=== PATIENT | female | born 1995 | race African-American/Black ===

== ENCOUNTER 2016-10-20 13:55 | Emergency (ER) | payer SELFPAY ==
[~2016-10-20] VITALS: Ht 170.2 cm; Wt 102.1 kg
[2016-10-20 14:10] VITALS: BP 108/55
[2016-10-20 15:13] LABS: BILIRUBIN,URINE NEGATIVE (NEG); GLUCOSE,URINE NEGATIVE (NEG); NITRITE,URINE NEGATIVE (NEG); PH,URINE 6.5; PROTEIN,URINE NEGATIVE (NEG-TRACE)
[2016-10-20 15:29] LABS: BACTERIA,URINE MODERATE /HPF (0-FEW); RBC,URINE 0 /HPF (0-2); SQUAMOUS EPITHELIAL CELL,UR MANY /LPF; WBC,URINE 20-40 /HPF (0-4)
[2016-10-20] MEDS ORDERED: NITR100C62 PO (15:41)
--- NOTE | 2016-10-20 15:42 | PHYS DOC ---
Past Medical History Past Medical History: No Pertinent History Past Surgical History: Other Additional Past Surgical Histo: ORAL SURGERY Alcohol Use: None Drug Use: None Adult General Chief Complaint Chief Complaint: PAIN ON URINATION HPI HPI 21-year-old female presenting to the emergency department with polyuria and dysuria. She describes the pain as sharp worse with urination nonradiating mild to moderate. It is associated with polyuria. She denies vaginal bleeding. She is unsure of her status. Her last menstrual period was approximately 4-1/2 weeks ago. Review of systems was negative for chest pain shortness of breath fevers chills abdominal pain or vaginal bleeding. All other review of systems is negative unless otherwise noted in history of present illness. Review of Systems Review of Systems see above Allergies Allergies Allergies Coded Allergies Type Severity Reaction Last Updated Verified No Known Drug Allergies 02/20/14 No Physical Exam Physical Exam Constitutional: Well developed, well nourished, no acute distress, non-toxic appearance. HENT: Normocephalic, atraumatic, bilateral external ears normal, oropharynx moist, no oral exudates, nose normal. [] Eyes: PERRLA, EOMI, conjunctiva normal, no discharge. [] Neck: Normal range of motion, no tenderness, supple, no stridor. Cardiovascular:Heart rate regular rhythm, no murmur [] Lungs & Thorax: Bilateral breath sounds clear to auscultation Abdomen: Bowel sounds normal, soft, no tenderness, no masses, no pulsatile masses. Skin: Warm, dry, no erythema, no rash. [] Back: No tenderness, no CVA tenderness. Extremities: No tenderness, no cyanosis, no clubbing, ROM intact, no edema. [] Neurologic: Alert and oriented X 3, normal motor function, normal sensory function, no focal deficits noted. [] Psychologic: Affect normal, judgement normal, mood normal. Current Patient Data Vital Signs Vital Signs Date Time Temp Pulse Resp B/P Pulse Ox O2 Delivery O2 Flow Rate FiO2 10/20/16 14:10 98.2 77 20 99 Room Air 98.2 Lab Values Laboratory Tests Test 10/20/16 14:15 Urine Collection Type Unknown Urine Color Yellow Urine Clarity Clear Urine pH 6.5 Urine Specific [place] 1.020 Urine Protein Negativemg/dL (NEG-TRACE) Urine Glucose (UA) Negativemg/dL (NEG) Urine Ketones (Stick) Negativemg/dL (NEG) Urine Blood Negative (NEG) Urine Nitrite Negative (NEG) Urine Bilirubin Negative (NEG) Urine Urobilinogen Dipstick 1.0mg/dL (0.2 mg/dL) Urine Leukocyte Esterase Large (NEG) Urine RBC 0/HPF (0-2) Urine WBC 20-40/HPF (0-4) Urine Squamous Epithelial Cells Many/LPF Urine Bacteria Moderate/HPF (0-FEW) Urine Mucus Mod/LPF EKG EKG [] Radiology/Procedures Radiology/Procedures [] Course & Med Decision Making Course & Med Decision Making Pertinent Labs and Imaging studies reviewed. (See chart for details) [] 21-year-old female presenting to the emergency department today with polyuria and dysuria. Signs and symptoms consistent with UTI. Urinalysis positive for urinary tract infection. test negative. I recommended repeating test in 5 days at home. Follow-up with doctor in 23 days. Antibiotics ordered. Dragon Disclaimer Dragon Disclaimer This electronic medical record was generated, in whole or in part, using a voice recognition dictation system. Departure Departure Impression: Primary Impression: UTI (urinary tract infection) Disposition: HOME, SELF-CARE Condition: STABLE Referrals: NO PCP (PCP) SUNNY LOMELI MD Patient Instructions: Urinary Tract Infection Additional Instructions: Thank you for allowing us to participate in your care today. Followup with your primary care physician in 3 days if your symptoms do not improve. Return to the emergency department you have any new or concerning findings. This should be evaluated by the primary care physician and any necessary consulting services for continued management within a few days after discharge. Return to emergency room if you have any new or concerning symptoms including but not limited to fever, chills, nausea, vomiting, intractable pain, any new rashes, chest pain, shortness of air, uncontrolled bleeding, difficulty breathing, and/or vision loss. Be careful as some of the medications that are prescribed in the emergency department can cause drowsiness and fatigue. Do not drive on medications that can cause drowsiness. Some of these medications include Benadryl or hydrocodone. Be sure to check with her pharmacist about any medications you were prescribed today regarding this. Scripts Nitrofurantoin Monohyd/M-Cryst (Macrobid 100 Mg Capsule)100 Mg Capsule1 Cap PO BID #10 CAP Prov:ESTEE ANGUIANO MD 10/20/16 ESTEE ANGUIANO MD Oct 20, 2016 15:41
== END 2016-10-20 15:47 | disposition home or self-care (01) ==
LOC: ER 13:55
DX: N39.0 Urinary tract infection, site not specified (principal)
CPT/HCPCS: 81001; 81025; 87086; 99284

== ENCOUNTER 2016-12-08 12:50 | Emergency (ER) | payer SELFPAY ==
[~2016-12-08] VITALS: Ht 167.6 cm; Wt 101.2 kg
[~2016-12-08 12:50] MED LIST: NITR100C62 PO
--- NOTE | 2016-12-08 14:41 | PHYS DOC ---
Past Medical History Past Medical History: No Pertinent History Past Surgical History: Other Additional Past Surgical Histo: ORAL SURGERY Alcohol Use: None Drug Use: None Adult General Chief Complaint Chief Complaint: ABDOMINAL PAIN IN HPI HPI Patient is a 21 year old female who presents with complaint of abdominal pain. Patient states that she is having dull lower abdominal pain which has been present since this morning. Patient is A1 approximately 7-1/2 weeks based off of last menstrual period of October 16, 2016. Patient states that she went to the health department and had a urine test which was positive for . Patient has not had an ultrasound done since confirming . The patient is not under the care of an [facility]PAIR[facility] but states that she plans on setting up care with Dr. Crum. Patient notes that she has had clearish vaginal discharge but denies any vaginal bleeding. Patient has not had any associated fevers or vomiting with her symptoms. Patient has not taken any medication to help with her symptoms. Patient rates her pain currently as 5 out of 10. Review of Systems Review of Systems Constitutional: Denies fever or chills [] Eyes: Denies change in visual acuity, redness, or eye pain [] HENT: Denies nasal congestion or sore throat [] Respiratory: Denies cough or shortness of breath [] Cardiovascular: No additional information not addressed in HPI [] GI: Abdominal pain, denies nausea, vomiting, bloody stools or diarrhea [] : Vaginal discharge, denies dysuria or hematuria [] Musculoskeletal: Denies back pain or joint pain [] Integument: Denies rash or skin lesions [] Neurologic: Denies headache, focal weakness or sensory changes [] Endocrine: Denies polyuria or polydipsia [] Current Medications Current Medications Current Medications Medications (Trade) Dose Ordered Sig/[facility] Start Time Stop Time Status Last Admin Dose Admin Metronidazole (Flagyl) 500 mg 1X ONCE 12/08/16 15:00 12/08/16 15:01 DC 12/08/16 14:58 500 MG Allergies Allergies Allergies Coded Allergies Type Severity Reaction Last Updated Verified No Known Drug Allergies 02/20/14 No Physical Exam Physical Exam Constitutional: Well developed, well nourished, no acute distress, non-toxic appearance. [] HENT: Normocephalic, atraumatic, bilateral external ears normal, oropharynx moist, no oral exudates, nose normal. [] Eyes: PERRLA, EOMI, conjunctiva normal, no discharge. [] Neck: Normal range of motion, no tenderness, supple, no stridor. [] Cardiovascular:Heart rate regular rhythm, no murmur [] Lungs & Thorax: Bilateral breath sounds clear to auscultation [] Abdomen: Bowel sounds normal, soft, no tenderness, no masses, no pulsatile masses. Pelvic: Normal external exam, no visible blood or purulent discharge in vaginal canal, no cervical motion tenderness, no midline or bilateral adnexal tenderness on bimanual exam [] Skin: Warm, dry, no erythema, no rash. [] Back: No tenderness, no CVA tenderness. [] Extremities: No tenderness, no cyanosis, no clubbing, ROM intact, no edema. [] Neurologic: Alert and oriented X 3, normal motor function, normal sensory function, no focal deficits noted. [] Current Patient Data Vital Signs Vital Signs Date Time Temp Pulse Resp B/P Pulse Ox O2 Delivery O2 Flow Rate FiO2 12/08/16 16:12 72 117/56 100 Room Air 12/08/16 12:53 16 Lab Values Laboratory Tests Test 12/08/16 13:48 12/08/16 14:40 Maternal Serum HCG Beta Subunit 59573dFG/mL (0-6) H Urine Collection Type Unknown Urine Color Yellow Urine Clarity Clear Urine pH 7.0 Urine Specific [place] 1.010 Urine Protein Negativemg/dL (NEG-TRACE) Urine Glucose (UA) Negativemg/dL (NEG) Urine Ketones (Stick) Negativemg/dL (NEG) Urine Blood Negative (NEG) Urine Nitrite Negative (NEG) Urine Bilirubin Negative (NEG) Urine Urobilinogen Dipstick 0.2mg/dL (0.2 mg/dL) Urine Leukocyte Esterase Small (NEG) Urine RBC 0/HPF (0-2) Urine WBC 1-4/HPF (0-4) Urine Squamous Epithelial Cells Few/LPF Urine Bacteria Few/HPF (0-FEW) Microbiology 12/08/16 Wet Prep - Final, Complete Microbiology 12/08/16 Wet Prep - Final, Complete EKG EKG Not performed [] Radiology/Procedures Radiology/Procedures Limited bedside transabdominal ultrasound performed and interpreted by myself: Cystic structure with double decidual sign within uterus, yolk sac visualized, no pole, no adnexal masses, no pelvic free fluid [] Course & Med Decision Making Course & Med Decision Making Pertinent Labs and Imaging studies reviewed. (See chart for details) Patient was given Flagyl in the emergency department for treatment of bacterial vaginosis. The patient's bedside ultrasound shows findings consistent with early though there was no confirmed heart rate at today's visit. Recommended that the patient have formal ultrasound imaging done in 1-2 weeks. Advised patient to follow-up in one week with Dr. Crum of [facility] and return to emergency department for any worsening symptoms. Patient was understanding and in agreement with treatment plan. Dragon Disclaimer Dragon Disclaimer This electronic medical record was generated, in whole or in part, using a voice recognition dictation system. Departure Departure Impression: Primary Impression: Bacterial vaginosis Additional Impression: Abdominal pain during Disposition: 01 HOME, SELF-CARE Condition: IMPROVED Referrals: NO PCP (PCP) Patient Instructions: Abdominal Pain During , Bacterial Vaginosis Additional Instructions: Follow-up with Dr. Crum in one week. Return to the emergency department for any worsening symptoms. Scripts Cephalexin (Keflex)500 Mg Capsule1 Cap PO BID #14 CAP Prov:ESTEE ANGUIANO MD 12/08/16 Metronidazole (Flagyl)500 Mg Tablet1 Tab PO BID #14 TAB Prov:DEANA ROGEL MD 12/08/16 Assessment/Plan Assessment/Plan Documentation of Estee Anguiano M.D.: I was asked by the nursing staff to evaluate and care for this patient who was up for discharge by previous provider Dr. Rogel based on urinalysis. It appears the patient has presented to our emergency department today with lower abdominal pain and . She reports being approximately 8 weeks . No vaginal bleeding present. Vital signs initially unremarkable. I examined the patient and talked to the patient. I reviewed the patient's lab work. Ultrasound performed by Dr. Rogel shows intrauterine . The patient's lab workup at this point in time includes urinalysis and blood test at 64,000. Urinalysis shows bacteriuria. I recommended the patient take Keflex for asymptomatic bacteriuria in . Patient was already provided with Flagyl by Dr. Rogel for tear vaginosis and . She was to follow-up with our obstetrics team over the next day or 2 for formal ultrasound and further workup evaluation and care. Problem Qualifiers Additional Impression: Abdominal pain during Trimester: first trimester Qualified Code: O26.891 - Other specified related conditions, first trimester DEANA ROGEL MD Dec 08, 2016 14:41 ESTEE ANGUIANO MD Dec 08, 2016 16:28
[2016-12-08] MEDS ORDERED: METR500T PO (14:49)
[2016-12-08] MEDS ORDERED: METRONIDAZOLE 500 MG TABLET. PO ONE (15:00)
[2016-12-08 15:11] LABS: BILIRUBIN,URINE NEGATIVE (NEG); GLUCOSE,URINE NEGATIVE (NEG); NITRITE,URINE NEGATIVE (NEG); PROTEIN,URINE NEGATIVE (NEG-TRACE); UROBILINOGEN,URINE 0.2 mg/dL (0.2 mg/dL)
[2016-12-08 16:03] LABS: BACTERIA,URINE FEW /HPF (0-FEW); RBC,URINE 0 /HPF (0-2); SQUAMOUS EPITHELIAL CELL,UR FEW /LPF
[2016-12-08 16:12] VITALS: BP 117/56
[2016-12-08] MEDS ORDERED: CEPH-264 PO (16:31)
== END 2016-12-08 16:39 | disposition home or self-care (01) ==
LOC: ER 12:50
DX: O26.891 Other specified pregnancy related conditions, first trimester (principal); R10.30 Lower abdominal pain, unspecified; O23.591 Infection of other part of genital tract in pregnancy, first trimester; N76.0 Acute vaginitis; B96.89 Other specified bacterial agents as the cause of diseases classified elsewhere; Z3A.01 Less than 8 weeks gestation of pregnancy
CPT/HCPCS: 36415; 81001; 84702; 87086; 87491; 87591; 99285; Q0111

== ENCOUNTER 2017-03-16 12:37 | Observation (INO) | payer OTHER ==
[~2017-03-16 12:37] MED LIST changes: +CEPH-264 PO; +METR500T PO
[2017-03-16] MEDS ORDERED: hydrOXYzine PAMOATE 25 MG CAPSULE PO PRN (13:15)
[2017-03-16] MEDS: IV RINGERS,LACTATED 1000ML 1,000 ML IV SCH ×2 (13:31→15:46)
== END 2017-03-16 17:55 | disposition home or self-care (01) ==
LOC: 3 SO LND 12:37
PROVIDERS: ADMIT Specialist; ATTEND Specialist
DX: O26.892 Other specified pregnancy related conditions, second trimester (principal); R10.30 Lower abdominal pain, unspecified; O99.342 Other mental disorders complicating pregnancy, second trimester; F32.9 Major depressive disorder, single episode, unspecified; Z3A.00 Weeks of gestation of pregnancy not specified
CPT/HCPCS: G0378; G0379; Q0177; J7120

== ENCOUNTER 2017-05-05 20:55 | Emergency (ER) | payer OTHER ==
[~2017-05-05] VITALS: Ht 167.6 cm; Wt 107.5 kg
--- NOTE | 2017-05-05 23:03 | RAD ---
EXAM: Right lower extremity venous Doppler sonogram. HISTORY: Pain. TECHNIQUE: Reeves scale and color Doppler sonographic evaluation of the right lower extremity veins with spectral waveform analysis was performed. FINDINGS: The exam is limited due to body habitus. There is normal color flow, normal compressibility and there are normal spectral waveforms in the common femoral, superficial femoral, popliteal, posterior tibial and greater saphenous veins. IMPRESSION: No Doppler evidence of lower extremity venous thrombosis. Electronically signed by: Lidia Pedraza MD (05/05/2017 10:59 PM) [facility]
--- NOTE | 2017-05-05 23:14 | PHYS DOC ---
Past Medical History Past Medical History: No Pertinent History Additional Past Medical Histor: childhood asthma Past Surgical History: Other Additional Past Surgical Histo: ORAL SURGERY Additional Information: non smoker Alcohol Use: None Drug Use: None Adult General Chief Complaint Chief Complaint: LOWER EXT PAIN HPI HPI Patient is a 21 year old female who presents with right calf pain and swelling. She is a G1, P0, 28 week female who has a due date of July 24, 2017. She is followed by Dr. Taylor, OB. She states that her right leg has been hurting her. Calf pain and swelling That she noticed today. He was told to come in to check for blood clots. No family history of blood clots. She states she's been feeling the baby move. No vaginal bleeding, leakage of fluid, abdominal cramping or back cramping. No recent travel, does not smoke tobacco. Review of Systems Review of Systems Constitutional: Denies fever or chills Eyes: Denies change in visual acuity, redness, or eye pain HENT: Denies nasal congestion or sore throat Respiratory: Denies cough or shortness of breath Cardiovascular: No chest pain. GI: Denies abdominal pain, nausea, vomiting, bloody stools or diarrhea : Denies dysuria or hematuria Musculoskeletal: Denies back pain or joint pain. Right leg pain and swelling. Integument: Denies rash or skin lesions Neurologic: Denies headache, focal weakness or sensory changes Allergies Allergies Allergies Coded Allergies Type Severity Reaction Last Updated Verified No Known Drug Allergies 02/20/14 No Physical Exam Physical Exam Constitutional: Well developed, well nourished, no acute distress, non-toxic appearance. HENT: Normocephalic, atraumatic, bilateral external ears normal, oropharynx moist, no oral exudates, nose normal. Eyes: PERRLA, EOMI, conjunctiva normal, no discharge. Neck: Normal range of motion, no tenderness, supple, no stridor. Cardiovascular:Heart rate regular rhythm, no murmur Lungs & Thorax: Bilateral breath sounds clear to auscultation Abdomen: Bowel sounds normal, soft, no tenderness, no masses, no pulsatile masses. Gravid; no contractions Skin: Warm, dry, no erythema, no rash. Back: No tenderness, no CVA tenderness. Extremities: No tenderness, no cyanosis, no clubbing, ROM intact. Tender to palpation of right calf and ankle area. No significant swelling noted. NVI distally. Neurologic: Alert and oriented X 3, normal motor function, normal sensory function, no focal deficits noted. Psychologic: Affect normal, judgement normal, mood normal. Current Patient Data Vital Signs Vital Signs Date Time Temp Pulse Resp B/P (MAP) Pulse Ox O2 Delivery O2 Flow Rate FiO2 05/05/17 22:14 98.2 87 18 128/70 (89) 100 Room Air 98.2 Radiology/Procedures Radiology/Procedures [facility] [address] [place] [address] IMAGING REPORT Signed PATIENT: MINDA WELLINGTON ACCOUNT: [id number] : 1995 LOCATION: ER AGE: 21 SEX: F EXAM STATUS: REG ER ORD. PHYSICIAN: MARY BAEZ MD REASON: preg w right calf pain PROCEDURE: VENOUS LOWER EXTREMITY RIGHT EXAM: Right lower extremity venous Doppler sonogram. HISTORY: Pain. TECHNIQUE: Reeves scale and color Doppler sonographic evaluation of the right lower extremity veins with spectral waveform analysis was performed. FINDINGS: The exam is limited due to body habitus. There is normal color flow, normal compressibility and there are normal spectral waveforms in the common femoral, superficial femoral, popliteal, posterior tibial and greater saphenous veins. IMPRESSION: No Doppler evidence of lower extremity venous thrombosis. Electronically signed by: Lidia Broderick MD (05/05/2017 10:59 PM) [facility] DICTATED and SIGNED BY: LIDIA BRODERICK MD DATE: 05/05/17 0272 CC: MARY BAEZ MD; NO PCP ~ Course & Med Decision Making Course & Med Decision Making Evaluated patient upon arrival. US ordered. She has no complaints of PE at this time. At 2310 PM: US back and is negative. Tylenol dosed here for pain. FHT noted. Home to f/u w OBShala Ritter Disclaimer Stone Disclaimer This electronic medical record was generated, in whole or in part, using a voice recognition dictation system. Departure Departure Impression: Primary Impression: Leg pain, right Additional Impression: Disposition: 01 HOME, SELF-CARE Condition: STABLE Referrals: NO PCP (PCP) MARIBEL JOHNSON MD Patient Instructions: Leg Cramps Additional Instructions: You can take tylenol for pain. Contact your OB for further care. Problem Qualifiers Additional Impression: Weeks of gestation: 28 weeks Qualified Codes: Z3A.28 - 28 weeks gestation of MARY BAEZ MD May 05, 2017 23:13
[2017-05-05] MEDS ORDERED: ACETAMINOPHEN 500 MG TABLET PO ONE (23:30)
[2017-05-06 00:04] VITALS: BP 111/62
== END 2017-05-06 00:05 | disposition home or self-care (01) ==
LOC: ER 20:55
DX: O26.893 Other specified pregnancy related conditions, third trimester (principal); M79.661 Pain in right lower leg
CPT/HCPCS: 93971; 99284-25

== ENCOUNTER → 2020-06-06 | Outpatient (CLI) | payer OTHER ==
[2020-06-06 11:15] LABS: BASO # 0.1 x10^3/uL (0.0-0.2); BASO % 1 % (0-3); EOS # 0.4 x10^3/uL (0.0-0.7); EOS % 4 % (0-3); HEMATOCRIT 30.5 % (36.0-47.0); HEMOGLOBIN 9.8 g/dL (12.0-15.5); LYMPH # 2.1 x10^3/uL (1.0-4.8); LYMPH % 22 % (24-48); MEAN CORPUSCULAR HEMOGLOBIN 21 pg (25-35); MEAN CORPUSCULAR HGB CONC 32 g/dL (31-37); MEAN CORPUSCULAR VOLUME 65 fL (79-100); MONO # 0.5 x10^3/uL (0.0-1.1); MONO % 6 % (0-9); NEUT # 6.2 x10^3/uL (1.8-7.7); NEUT % 67 % (31-73); PLATELET COUNT 304 x10^3/uL (140-400); RED CELL DISTRIBUTION WIDTH 18.7 % (11.5-14.5); WHITE BLOOD COUNT 9.3 x10^3/uL (4.0-11.0)
[2020-06-06 13:06] LABS: ANISOCYTOSIS PRESENT; HYPOCHROMIA PRESENT; MICROCYTOSIS PRESENT; PLT ESTIMATE ADEQUATE (ADEQUATE); POLYCHROMASIA PRESENT
== END | disposition home or self-care (01) ==
LOC: LAB 09:54
PROVIDERS: ATTEND Obstetrics & Gynecology
DX: O09.90 Supervision of high risk pregnancy, unspecified, unspecified trimester (principal); Z3A.00 Weeks of gestation of pregnancy not specified
CPT/HCPCS: 36415; 82950; 85025; 86850; 86900; 86901

== ENCOUNTER 2020-06-13 08:15 | Inpatient (IN) | payer OTHER ==
[~2020-06-13] VITALS: Ht 167.6 cm; Wt 114.3 kg
[2020-06-13 08:50] LABS: BILIRUBIN,URINE NEGATIVE (NEG); CLARITY,URINE CLEAR; COLOR,URINE YELLOW; NITRITE,URINE NEGATIVE (NEG); PROTEIN,URINE NEGATIVE (NEG-TRACE); UROBILINOGEN,URINE 0.2 mg/dL (0.2 mg/dL)
[2020-06-13 09:00] LABS: AMNIO PT POSITIVE
[2020-06-13] MEDS ORDERED: OXYTOCIN 30 UNIT/500 ML PREMIX 500 ML IV PRN ×3 (09:15→12:15)
[2020-06-13] MEDS ORDERED: CITRIC ACID/SODIUM CITRATE 30 ML SOLUTION. PO ONE (09:15)
[2020-06-13] MEDS ORDERED: 0.9 % SODIUM CHLORIDE 10 ML DISP.SYRIN. IV PRN ×2 (09:15→12:15)
[2020-06-13] MEDS ORDERED: AZITHRMYCN 500MG IVPB FOR OMNI 250 ML IV ONE (09:15)
[2020-06-13] MEDS ORDERED: TERBUTALINE 1 MG/ML VIAL. SQ PRN (09:15)
[2020-06-13] MEDS ORDERED: IBUPROFEN 400 MG TABLET. PO PRN (09:15)
[2020-06-13] MEDS ORDERED: LIDOCAINE 1% PF 30 ML VIAL. INJ PRN (09:15)
[2020-06-13 09:21] LABS: BACTERIA,URINE FEW /HPF (0-FEW); RBC,URINE 0 /HPF (0-2)
[2020-06-13] MEDS ORDERED: AZITHROMYCIN 500 MG in IV NORMAL SALINE 250ML 250 ML IV ONE (09:30)
[2020-06-13] MEDS ORDERED: OXYTOCIN 10 UNIT/ML VIAL. ONE ×6 (09:44→11:39)
[2020-06-13] MEDS ORDERED: MORPHINE PF 10 MG/10 ML AMPUL. ONE (09:45)
[2020-06-13] MEDS ORDERED: fentaNYL PF VIAL 100 MCG/2 ML VIAL ONE (09:45)
[2020-06-13] MEDS ORDERED: ONDANSETRON PF 4 MG/2 ML VIAL. ONE (09:45)
[2020-06-13 09:46] LABS: BASO # 0.1 x10^3/uL (0.0-0.2); BASO % 1 % (0-3); EOS # 0.5 x10^3/uL (0.0-0.7); EOS % 5 % (0-3); HEMATOCRIT 29.7 % (36.0-47.0); HEMOGLOBIN 9.8 g/dL (12.0-15.5); LYMPH # 2.4 x10^3/uL (1.0-4.8); LYMPH % 25 % (24-48); MEAN CORPUSCULAR HEMOGLOBIN 21 pg (25-35); MEAN CORPUSCULAR HGB CONC 33 g/dL (31-37); MEAN CORPUSCULAR VOLUME 64 fL (79-100); MONO # 0.8 x10^3/uL (0.0-1.1); MONO % 8 % (0-9); NEUT # 5.6 x10^3/uL (1.8-7.7); NEUT % 60 % (31-73); PLATELET COUNT 304 x10^3/uL (140-400); RED BLOOD COUNT 4.68 x10^6/uL (3.50-5.40); RED CELL DISTRIBUTION WIDTH 18.9 % (11.5-14.5); WHITE BLOOD COUNT 9.4 x10^3/uL (4.0-11.0)
[2020-06-13 10:00] LABS: BARBITURATES NEG (NEG); BENZODIAZEPINES NEG (NEG); CANNABINOIDS POS (NEG); COCAINE NEG (NEG); METHADONE NEG (NEG); OPIATES NEG (NEG); PHENCYCLIDINE NEG (NEG)
[2020-06-13 10:01] LABS: AMPHETAMINE/METHAMPHETAMINE NEG (NEG)
[2020-06-13] MEDS: IV RINGERS,LACTATED 1000ML 1,000 ML IV SCH ×4 (10:46→22:20)
[2020-06-13 11:10] LABS: ANISOCYTOSIS SLIGHT; PLT ESTIMATE ADEQUATE (ADEQUATE)
[2020-06-13 11:11] LABS: MICROCYTOSIS PRESENT; OVALOCYTES OCC
[2020-06-13] MEDS ORDERED: ceFAZolin 2GM PREMIX 2 GM/50 ML BAG IV ONE (12:00)
--- NOTE | 2020-06-13 12:07 | PDOC1 ---
OB - History Hx of Present Care: Good Care Ultrasounds: Normal mid trimester US Obstetrical Complications: None Medical Complications: None Past Family/Social History * Past Medical, Surgical, Family and Obstetric Histories reviewed from chart. Rubella: Immune RPR/VDRL: Negative GBS Status: Negative HBsAG: Negative OB - Chief Complaint & HPI Date of Admission: Date of Admission: Jun 13, 2020 at 08:15 Chief Complaint/History : 3 Para: 2 EGA: 37 Reason for admission: active labor, rupture of membranes Indication for : desires repeat Admission Nurse Assessment Rev: Yes OB - Admission Exam Physical Exam HEENT: Normal Heart: Regular Rate Lungs: Clear Abdomen: Gravid, Non tender, Soft Extremities: Edema Reflexes: Normal Cervical Dilatation: 2cm Effacement: 50% Station: -3 Membranes: Ruptured Amniotic Fluid: Clear Heart Rate: Normal Accelerations: Accelerations Present Decelerations: No decelerations Contractions on Admission: 6-10 Minutes Apart Intensity: Moderate Text A: 37 wks IUP Previous c/s x 2 SROM P: Admit repeat c/s. TIERRA COFFMAN Jr, MD Jun 13, 2020 12:07
--- NOTE | 2020-06-13 12:12 | PDOC4 ---
OB Operative Note Date: Jun 13, 2020 PRE OP DIAGNOSIS: Previoujs C- section (SROM) POST OP DIAGNOSIS: Other (Same) OPERATION PERFORMED: R [facility] Surgeon Dr. Arguelles Assistant [employer] Dr. Aragon Anesthesia: Regional (Spinal) Blood Loss 600 ml Specimen placenta and infant OB Findings: Position (Vertex), Sex (Male), (8/9), Weight (3065 Gram), Nuchal Cord (x2) Complications none Additional Remarks pt. TIERRA Harris Jr, MD Jun 13, 2020 12:12
[2020-06-13] MEDS ORDERED: MAG HYDROX/ALUMINUM HYD/SIMETH 30 ML ORAL.SUSP PO PRN (12:15)
[2020-06-13] MEDS ORDERED: SIMETHICONE 80 MG TAB.CHEW PO PRN (12:15)
[2020-06-13] MEDS ORDERED: ZOLPIDEM 5 MG TABLET. PO PRN (12:15)
[2020-06-13] MEDS ORDERED: KETOROLAC 30 MG/ML VIAL. IV PRN (12:15)
[2020-06-13] MEDS ORDERED: ONDANSETRON PF 4 MG/2 ML VIAL. IV PRN (12:15)
--- NOTE | 2020-06-13 12:23 | OP ---
DATE OF SURGERY: 06/13/2020 PREOPERATIVE DIAGNOSES: 1. A 37 weeks' intrauterine . 2. Previous section x 2. 3. Spontaneous rupture of membranes. POSTOPERATIVE DIAGNOSES: 1. A 37 weeks' intrauterine . 2. Previous section x 2. 3. Spontaneous rupture of membranes. PROCEDURE: Repeat low-transverse section. SURGEON: Tierra Arguelles MD INSPECTOR OUTSIDE PRODUCTION: Bernard Aragon MD ANESTHESIA: Spinal. ESTIMATED BLOOD LOSS: 600 mL. COMPLICATIONS: None. FINDINGS: Viable male , Apgars 8 and 9, weight 3065 grams. Three-vessel cord placenta delivered manually. Nuchal cord x 2. SUMMARY: A 24-year-old 3, para 2 at 37 weeks, presented to Labor and Delivery with spontaneous rupture of membranes and regular contractions. The patient was counseled on the risks, benefits and expectations of repeat section and voiced clear understanding to proceed. DESCRIPTION OF PROCEDURE: The patient was taken to surgery suite and placed in dorsal supine position. She was prepped with ChloraPrep and draped in a sterile fashion. After adequate anesthesia, Pfannenstiel skin incision was made with a scalpel down to and through the fascia. The fascia was extended laterally using curved Hays scissors. The superior edge of the fascia was grasped with 2 Elle clamps and dissected free of the abdominal rectus muscles using blunt dissection along with Bovie cautery. The same process took place inferiorly. The abdominal rectus muscle was dissected using curved Hays scissors. The peritoneum was grasped with 2 hemostats, entered sharply with Metzenbaum scissors. This incision was extended superiorly as well as inferiorly. The Yosi ring retractor was placed. A low-transverse hysterotomy incision was made with scalpel down to the . Hysterotomy incision was extended laterally and superiorly digitally. With the aid of fundal pressure, the infant's head was delivered in a smooth atraumatic manner. Nuchal cord x 2 was visualized and reduced. With additional fundal pressure, the anterior shoulder was delivered followed by posterior shoulder. Rest of the male was delivered. The infant was suctioned with a bulb syringe orally and nasally. The umbilical cord was clamped twice and cut. Viable male infant was handed to the awaiting nursing staff. Umbilical cord blood was then obtained. A 3-vessel cord placenta was delivered manually. The uterus was then exteriorized and cleared of clot and debris with a moist lap. Hysterotomy incision was reapproximated using 1 Vicryl suture in a running locked fashion. Uterus palpated firm. Fallopian tubes and ovaries appeared normal bilaterally. Posterior cul-de-sac was cleared of clot and debris with a moist lap. The uterus was then returned to the abdomen. The pericolic gutters were cleared of clot and debris with a moist lap. The hysterotomy incision was reviewed and hemostatic. The Yosi ring retractor was removed. The peritoneum was reapproximated using 1 Vicryl suture in a running fashion. The abdominal rectus muscles were reapproximated using 1 Vicryl suture in an interrupted fashion. The fascia was reapproximated using Stratafix in a running fashion. The skin was reapproximated using 4-0 Vicryl suture in a subcuticular manner. Prevena wound VAC was placed. The patient tolerated the procedure well and was taken to recovery room in stable condition. Sponge and needle count correct x 3. TIERRA ARGUELLES MD DR: GALI/cindy JOB#: [id number] / [id number]
[2020-06-13] MEDS ORDERED: ePHEDrine PF IN SALINE 50 MG/10 ML SYRINGE. IV ONE (12:26)
[2020-06-13] MEDS: KETOROLAC 30 MG/ML VIAL. IV PRN ×2 (14:32→22:19)
[2020-06-13] MEDS: diphenhydrAMINE ORAL ELIXIR 12.5 MG/5 ML ML PO PRN ×2 (14:46→19:48)
[2020-06-13 15:30] VITALS: BP 117/71
[2020-06-13 16:00] VITALS: BP 115/69
[2020-06-13 18:06] VITALS: BP 118/81
[2020-06-13 20:00] VITALS: BP 119/61
[2020-06-14] VITALS: BP 121/68
[2020-06-14] MEDS: IV RINGERS,LACTATED 1000ML 1,000 ML IV SCH ×6 (00:18→17:06)
[2020-06-14 05:00] VITALS: BP 110/68
[2020-06-14 07:32] LABS: BASO # 0.1 x10^3/uL (0.0-0.2); BASO % 1 % (0-3); EOS # 0.4 x10^3/uL (0.0-0.7); EOS % 4 % (0-3); HEMATOCRIT 27.7 % (36.0-47.0); HEMOGLOBIN 8.9 g/dL (12.0-15.5); LYMPH # 2.2 x10^3/uL (1.0-4.8); LYMPH % 20 % (24-48); MEAN CORPUSCULAR HEMOGLOBIN 21 pg (25-35); MEAN CORPUSCULAR HGB CONC 32 g/dL (31-37); MEAN CORPUSCULAR VOLUME 64 fL (79-100); MONO # 0.7 x10^3/uL (0.0-1.1); MONO % 7 % (0-9); NEUT # 7.6 x10^3/uL (1.8-7.7); NEUT % 69 % (31-73); PLATELET COUNT 274 x10^3/uL (140-400); RED BLOOD COUNT 4.31 x10^6/uL (3.50-5.40); RED CELL DISTRIBUTION WIDTH 18.2 % (11.5-14.5)
[2020-06-14] MEDS: DOCUSATE SODIUM 100 MG CAPSULE. PO PRN ×2 (07:54→18:24)
[2020-06-14] MEDS: MULTIVITAMIN with MINERAL TABLET. PO SCH (07:54)
[2020-06-14] MEDS: FERROUS SULFATE 325 MG TABLET. PO SCH ×2 (07:54→18:24)
[2020-06-14] MEDS: oxyCODONE/APAP 5/325 1 TAB TABLET PO PRN ×4 (07:55→20:50)
[2020-06-14 10:48] VITALS: BP 117/81
[2020-06-14] MEDS ORDERED: diphenhydrAMINE HCL 25 MG CAPSULE PO PRN (11:00)
--- NOTE | 2020-06-14 12:59 | PDOC ---
OB Progress Note Date of Service 06/14/20 Time of Evaluation 1255 Notes Pt. feeling well. No complaints. Lab Laboratory Tests Test 06/13/20 08:40 06/13/20 08:41 06/13/20 09:10 06/13/20 09:18 Urine Opiates Screen Neg (NEG) Urine Methadone Screen Neg (NEG) Urine Barbiturates Neg (NEG) Urine Phencyclidine Screen Neg (NEG) Urine Amphetamine/Methamphetamine Neg (NEG) Urine Benzodiazepines Screen Neg (NEG) Urine Cocaine Screen Neg (NEG) Urine Cannabinoids Screen Pos (NEG) Urine Ethyl Alcohol Neg (NEG) Urine Collection Type Unknown Urine Color Yellow Urine Clarity Clear Urine pH 7.0 (<5.0-8.0) Urine Specific [place] <=1.005 (1.000-1.030) Urine Protein Negative mg/dL (NEG-TRACE) Urine Glucose (UA) Negative mg/dL (NEG) Urine Ketones (Stick) Negative mg/dL (NEG) Urine Blood Negative (NEG) Urine Nitrite Negative (NEG) Urine Bilirubin Negative (NEG) Urine Urobilinogen Dipstick 0.2 mg/dL (0.2 mg/dL) Urine Leukocyte Esterase Negative (NEG) Urine RBC 0 /HPF (0-2) Urine WBC 1-4 /HPF (0-4) Urine Squamous Epithelial Cells Many /LPF Urine Bacteria Few /HPF (0-FEW) Amniotic Fluid Swab Test Positive White Blood Count 9.4 x10^3/uL (4.0-11.0) Red Blood Count 4.68 x10^6/uL (3.50-5.40) Hemoglobin 9.8 g/dL (12.0-15.5) Hematocrit 29.7 % (36.0-47.0) Mean Corpuscular Volume 64 fL (79-100) Mean Corpuscular Hemoglobin 21 pg (25-35) Mean Corpuscular Hemoglobin Concent 33 g/dL (31-37) Red Cell Distribution Width 18.9 % (11.5-14.5) Platelet Count 304 x10^3/uL (140-400) Neutrophils (%) (Auto) 60 % (31-73) Lymphocytes (%) (Auto) 25 % (24-48) Monocytes (%) (Auto) 8 % (0-9) Eosinophils (%) (Auto) 5 % (0-3) Basophils (%) (Auto) 1 % (0-3) Neutrophils # (Auto) 5.6 x10^3/uL (1.8-7.7) Lymphocytes # (Auto) 2.4 x10^3/uL (1.0-4.8) Monocytes # (Auto) 0.8 x10^3/uL (0.0-1.1) Eosinophils # (Auto) 0.5 x10^3/uL (0.0-0.7) Basophils # (Auto) 0.1 x10^3/uL (0.0-0.2) Platelet Estimate Adequate (ADEQUATE) Giant Platelets Occ Anisocytosis Slight Microcytosis Present Ovalocytes Occ Hepatitis B Surface Antigen Nonreactive (Nonreactive) Coronavirus (PCR) Not detected (Not Detected) SARS-CoV-2 Antigen (Rapid) Negative (NEGATIVE) Test 06/14/20 07:10 White Blood Count 11.0 x10^3/uL (4.0-11.0) Red Blood Count 4.31 x10^6/uL (3.50-5.40) Hemoglobin 8.9 g/dL (12.0-15.5) Hematocrit 27.7 % (36.0-47.0) Mean Corpuscular Volume 64 fL (79-100) Mean Corpuscular Hemoglobin 21 pg (25-35) Mean Corpuscular Hemoglobin Concent 32 g/dL (31-37) Red Cell Distribution Width 18.2 % (11.5-14.5) Platelet Count 274 x10^3/uL (140-400) Neutrophils (%) (Auto) 69 % (31-73) Lymphocytes (%) (Auto) 20 % (24-48) Monocytes (%) (Auto) 7 % (0-9) Eosinophils (%) (Auto) 4 % (0-3) Basophils (%) (Auto) 1 % (0-3) Neutrophils # (Auto) 7.6 x10^3/uL (1.8-7.7) Lymphocytes # (Auto) 2.2 x10^3/uL (1.0-4.8) Monocytes # (Auto) 0.7 x10^3/uL (0.0-1.1) Eosinophils # (Auto) 0.4 x10^3/uL (0.0-0.7) Basophils # (Auto) 0.1 x10^3/uL (0.0-0.2) Laboratory Tests Test 06/14/20 07:10 White Blood Count 11.0 x10^3/uL (4.0-11.0) Red Blood Count 4.31 x10^6/uL (3.50-5.40) Hemoglobin 8.9 g/dL (12.0-15.5) Hematocrit 27.7 % (36.0-47.0) Mean Corpuscular Volume 64 fL (79-100) Mean Corpuscular Hemoglobin 21 pg (25-35) Mean Corpuscular Hemoglobin Concent 32 g/dL (31-37) Red Cell Distribution Width 18.2 % (11.5-14.5) Platelet Count 274 x10^3/uL (140-400) Neutrophils (%) (Auto) 69 % (31-73) Lymphocytes (%) (Auto) 20 % (24-48) Monocytes (%) (Auto) 7 % (0-9) Eosinophils (%) (Auto) 4 % (0-3) Basophils (%) (Auto) 1 % (0-3) Neutrophils # (Auto) 7.6 x10^3/uL (1.8-7.7) Lymphocytes # (Auto) 2.2 x10^3/uL (1.0-4.8) Monocytes # (Auto) 0.7 x10^3/uL (0.0-1.1) Eosinophils # (Auto) 0.4 x10^3/uL (0.0-0.7) Basophils # (Auto) 0.1 x10^3/uL (0.0-0.2) Medications Current Medications Ringer's Solution 1,000 ml @ 125 mls/hr Q8H IV Last administered on 06/13/20at 19:51; Start 06/13/20 at 08:18 Cefazolin Sodium/ Dextrose 50 ml @ 100 mls/hr 1X ONCE IV ; Start 06/13/20 at 09:15; Stop 06/13/20 at 09:44; Status DC Citric Acid/ Sodium Citrate (Bicitra) 30 ml 1X ONCE PO Last administered on 06/13/20at 10:45; Start 06/13/20 at 09:15; Stop 06/13/20 at 09:19; Status DC Azithromycin 250 ml @ 250 mls/hr 1X ONCE IV ; Start 06/13/20 at 09:15; Stop 06/13/20 at 09:16; Status DC Sodium Chloride (Normal Saline Flush) 3 ml QSHIFT PRN IV AFTER MEDS AND BLOOD DRAWS; Start 06/13/20 at 09:15 Ringer's Solution 1,000 ml @ 125 mls/hr Q8H IV Last administered on 06/13/20at 22:20; Start 06/13/20 at 09:06 Terbutaline Sulfate (Brethine) 0.25 mg 1X PRN PRN SQ SEE COMMENTS; Start 06/13/20 at 09:15; Stop 06/14/20 at 09:14; Status DC Lidocaine HCl (Xylocaine 1% Pf 30ml Vial) 30 ml 1X PRN PRN INJ SEE COMMENTS; Start 06/13/20 at 09:15; Stop 06/15/20 at 09:14 Oxytocin/Sodium Chloride 500 ml @ 0 mls/hr CONT PRN IV SEE I/O RECORD; Start 06/13/20 at 09:15 Oxytocin/Sodium Chloride 500 ml @ 0 mls/hr CONT PRN PRN IV Post delivery bleeding; Start 06/13/20 at 09:15 Ibuprofen (Motrin) 800 mg PRN Q6HRS PRN PO INFLAMMATION Last administered on 06/14/20at 07:55; Start 06/13/20 at 09:15; Stop 06/14/20 at 09:52; Status DC Azithromycin 500 mg/Sodium Chloride 250 ml @ 250 mls/hr 1X ONCE IV ; Start 06/13/20 at 09:30; Stop 06/13/20 at 10:29; Status DC Oxytocin (Pitocin) 10 unit STK-MED ONCE .ROUTE ; Start 06/13/20 at 09:44; Stop 06/13/20 at 09:45; Status DC Ondansetron HCl (Zofran) 4 mg STK-MED ONCE .ROUTE ; Start 06/13/20 at 09:45; Stop 06/13/20 at 09:45; Status DC Morphine Sulfate (Morphine Preservative Free) 10 mg STK-MED ONCE .ROUTE ; Start 06/13/20 at 09:45; Stop 06/13/20 at 09:45; Status DC Fentanyl Citrate (Fentanyl 2ml Vial) 100 mcg STK-MED ONCE .ROUTE ; Start 06/13/20 at 09:45; Stop 06/13/20 at 09:45; Status DC Ketorolac Tromethamine (Toradol 30mg Vial) 30 mg PRN Q6HRS PRN IV PAIN Last administered on 06/13/20at 22:19; Start 06/13/20 at 10:15; Stop 06/18/20 at 10:14 Oxytocin (Pitocin) 10 unit STK-MED ONCE .ROUTE ; Start 06/13/20 at 11:37; Stop 06/13/20 at 11:37; Status DC Oxytocin (Pitocin) 10 unit STK-MED ONCE .ROUTE ; Start 06/13/20 at 11:39; Stop 06/13/20 at 11:40; Status DC Oxytocin (Pitocin) 10 unit STK-MED ONCE .ROUTE ; Start 06/13/20 at 11:39; Stop 06/13/20 at 11:40; Status DC Oxytocin (Pitocin) 10 unit STK-MED ONCE .ROUTE ; Start 06/13/20 at 11:39; Stop 06/13/20 at 11:40; Status DC Oxytocin (Pitocin) 10 unit STK-MED ONCE .ROUTE ; Start 06/13/20 at 11:39; Stop 06/13/20 at 11:40; Status DC Sodium Chloride (Normal Saline Flush) 3 ml QSHIFT PRN IV AFTER MEDS AND BLOOD DRAWS; Start 06/13/20 at 12:15 Oxytocin/Sodium Chloride 500 ml @ 125 mls/hr CONT PRN IV EXCESSIVE POST- BLEEDING; Start 06/13/20 at 12:15; Stop 06/13/20 at 20:14; Status DC Ibuprofen (Motrin) 800 mg PRN Q8HRS PRN PO INFLAMMATION; Start 06/13/20 at 12:15 Ondansetron HCl (Zofran) 4 mg PRN Q6HRS PRN IV NAUSEA/VOMITING; Start 06/13/20 at 12:15 Docusate Sodium (Colace) 100 mg PRN BID PRN PO HARD STOOL Last administered on 06/14/20at 07:54; Start 06/13/20 at 12:15 Al Hydroxide/Mg Hydroxide (Mylanta Plus Xs) 30 ml PRN Q4HRS PRN PO HEARTBURN / GAS; Start 06/13/20 at 12:15 Simethicone (Gas-X) 80 mg PRN AFTMEALHC PRN PO GAS / BLOATING Last administered on 06/14/20at 07:54; Start 06/13/20 at 12:15 Diphenhydramine HCl (Benadryl Oral Elixir) 12.5 mg PRN Q6HRS PRN PO ITCHING Last administered on 06/13/20at 19:48; Start 06/13/20 at 12:15; Stop 06/14/20 at 10:58; Status DC Ferrous Sulfate (Feosol) 325 mg BIDWMEALS PO Last administered on 06/14/20at 07:54; Start 06/13/20 at 17:00 Zolpidem Tartrate (Ambien) 5 mg PRN QHS PRN PO INSOMNIA, MAY REPEAT X1; Start 06/13/20 at 12:15 Oxycodone/ Acetaminophen (Percocet 5/325) 2 tab PRN Q4HRS PRN PO MODERATE PAIN, SEVERE PAIN Last administered on 06/14/20at 07:55; Start 06/13/20 at 12:15 Ketorolac Tromethamine (Toradol 30mg Vial) 30 mg PRN Q6HRS PRN IV PAIN; Start 06/13/20 at 12:15; Stop 06/18/20 at 12:14; Status Cancel Multivitamins (Thera M Plus) 1 tab DAILY PO Last administered on 06/14/20at 07:54; Start 06/14/20 at 09:00 Ephedrine Sulfate (ePHEDrine PF IN SALINE SYRINGE) 50 mg STK-MED ONCE IV ; Start 06/13/20 at 12:26; Stop 06/13/20 at 12:27; Status DC Diphenhydramine HCl (Benadryl) 25 mg PRN Q6HRS PRN PO ITCHING Last administered on 06/14/20at 11:08; Start 06/14/20 at 11:00 Active Scripts Active Keflex (Cephalexin) 500 Mg Capsule 1 Cap PO BID Flagyl (Metronidazole) 500 Mg Tablet 1 Tab PO BID Macrobid 100 Mg Capsule (Nitrofurantoin Monohyd/M-Cryst) 100 Mg Capsule 1 Cap PO BID Exam Abd: soft, mild tenderness, fundus firm Prevena in place Assessment POD#1 s/p repeat c/s Plan of Care: Continue current Tx, Mgmt TIERRA COFFMAN Jr, MD Jun 14, 2020 12:59
--- NOTE | 2020-06-14 14:10 | NUR ---
SS following up with referral regarding, "mother positive for Marijuana." SS reviewed pt chart. SS met with mother to assess circumstances regarding the referral. Mother admitted using Marijuana during for nausea, eating, and sleeping. Mother reported that last use was two weeks ago. Mother educated on benefits of abstinence from Marijuana. Mother reported having good family support and transportation. Mother reported having all needed supplies for to include carseat. Mother reported having WIC and Medicaid. Mother requesting machine package sealer appt at [facility]. Mother reported that she is breast feeding. Mother denied DCF history and behavioral health history. Mother reported that soon she will be moving from [facility] to [facility]. As observed, mother was bonding appropriately with . SS discussed with infant RN. DCF hotline report made for Marijuana use, intake# [id number]. SS will continue to follow as needed.
[2020-06-14 15:00] VITALS: BP 122/88
[2020-06-14] MEDS: IBUPROFEN 400 MG TABLET. PO PRN (15:13)
[2020-06-14 21:00] VITALS: BP 107/68
[2020-06-15] MEDS: IV RINGERS,LACTATED 1000ML 1,000 ML IV SCH ×6 (00:18→17:06)
[2020-06-15] MEDS: oxyCODONE/APAP 5/325 1 TAB TABLET PO PRN ×6 (00:19→22:17)
[2020-06-15] MEDS: IBUPROFEN 400 MG TABLET. PO PRN ×3 (00:19→16:30)
[2020-06-15] MEDS: DOCUSATE SODIUM 100 MG CAPSULE. PO PRN (00:20)
[2020-06-15 04:30] VITALS: BP 125/71
[2020-06-15] MEDS: FERROUS SULFATE 325 MG TABLET. PO SCH ×3 (08:00→17:00)
[2020-06-15] MEDS: MULTIVITAMIN with MINERAL TABLET. PO SCH (08:11)
[2020-06-15 10:35] VITALS: BP 141/64
--- NOTE | 2020-06-15 16:46 | PDOC ---
OB Progress Note Date of Service 06/15/20 Time of Evaluation 1645 Notes Pt. feeling well. No complaints. Lab Laboratory Tests Test 06/14/20 07:10 White Blood Count 11.0 x10^3/uL (4.0-11.0) Red Blood Count 4.31 x10^6/uL (3.50-5.40) Hemoglobin 8.9 g/dL (12.0-15.5) Hematocrit 27.7 % (36.0-47.0) Mean Corpuscular Volume 64 fL (79-100) Mean Corpuscular Hemoglobin 21 pg (25-35) Mean Corpuscular Hemoglobin Concent 32 g/dL (31-37) Red Cell Distribution Width 18.2 % (11.5-14.5) Platelet Count 274 x10^3/uL (140-400) Neutrophils (%) (Auto) 69 % (31-73) Lymphocytes (%) (Auto) 20 % (24-48) Monocytes (%) (Auto) 7 % (0-9) Eosinophils (%) (Auto) 4 % (0-3) Basophils (%) (Auto) 1 % (0-3) Neutrophils # (Auto) 7.6 x10^3/uL (1.8-7.7) Lymphocytes # (Auto) 2.2 x10^3/uL (1.0-4.8) Monocytes # (Auto) 0.7 x10^3/uL (0.0-1.1) Eosinophils # (Auto) 0.4 x10^3/uL (0.0-0.7) Basophils # (Auto) 0.1 x10^3/uL (0.0-0.2) Medications Current Medications Ringer's Solution 1,000 ml @ 125 mls/hr Q8H IV Last administered on 06/13/20at 19:51; Start 06/13/20 at 08:18 Cefazolin Sodium/ Dextrose 50 ml @ 100 mls/hr 1X ONCE IV ; Start 06/13/20 at 09:15; Stop 06/13/20 at 09:44; Status DC Citric Acid/ Sodium Citrate (Bicitra) 30 ml 1X ONCE PO Last administered on 06/13/20at 10:45; Start 06/13/20 at 09:15; Stop 06/13/20 at 09:19; Status DC Azithromycin 250 ml @ 250 mls/hr 1X ONCE IV ; Start 06/13/20 at 09:15; Stop 06/13/20 at 09:16; Status DC Sodium Chloride (Normal Saline Flush) 3 ml QSHIFT PRN IV AFTER MEDS AND BLOOD DRAWS; Start 06/13/20 at 09:15 Ringer's Solution 1,000 ml @ 125 mls/hr Q8H IV Last administered on 06/13/20at 22:20; Start 06/13/20 at 09:06 Terbutaline Sulfate (Brethine) 0.25 mg 1X PRN PRN SQ SEE COMMENTS; Start 06/13/20 at 09:15; Stop 06/14/20 at 09:14; Status DC Lidocaine HCl (Xylocaine 1% Pf 30ml Vial) 30 ml 1X PRN PRN INJ SEE COMMENTS; Start 06/13/20 at 09:15; Stop 06/15/20 at 09:32; Status DC Oxytocin/Sodium Chloride 500 ml @ 0 mls/hr CONT PRN IV SEE I/O RECORD; Start 06/13/20 at 09:15 Oxytocin/Sodium Chloride 500 ml @ 0 mls/hr CONT PRN PRN IV Post delivery bleeding; Start 06/13/20 at 09:15 Ibuprofen (Motrin) 800 mg PRN Q6HRS PRN PO INFLAMMATION Last administered on 06/14/20at 07:55; Start 06/13/20 at 09:15; Stop 06/14/20 at 09:52; Status DC Azithromycin 500 mg/Sodium Chloride 250 ml @ 250 mls/hr 1X ONCE IV ; Start 06/13/20 at 09:30; Stop 06/13/20 at 10:29; Status DC Oxytocin (Pitocin) 10 unit STK-MED ONCE .ROUTE ; Start 06/13/20 at 09:44; Stop 06/13/20 at 09:45; Status DC Ondansetron HCl (Zofran) 4 mg STK-MED ONCE .ROUTE ; Start 06/13/20 at 09:45; Stop 06/13/20 at 09:45; Status DC Morphine Sulfate (Morphine Preservative Free) 10 mg STK-MED ONCE .ROUTE ; Start 06/13/20 at 09:45; Stop 06/13/20 at 09:45; Status DC Fentanyl Citrate (Fentanyl 2ml Vial) 100 mcg STK-MED ONCE .ROUTE ; Start 06/13/20 at 09:45; Stop 06/13/20 at 09:45; Status DC Ketorolac Tromethamine (Toradol 30mg Vial) 30 mg PRN Q6HRS PRN IV PAIN Last administered on 06/13/20at 22:19; Start 06/13/20 at 10:15; Stop 06/18/20 at 10:14 Oxytocin (Pitocin) 10 unit STK-MED ONCE .ROUTE ; Start 06/13/20 at 11:37; Stop 06/13/20 at 11:37; Status DC Oxytocin (Pitocin) 10 unit STK-MED ONCE .ROUTE ; Start 06/13/20 at 11:39; Stop 06/13/20 at 11:40; Status DC Oxytocin (Pitocin) 10 unit STK-MED ONCE .ROUTE ; Start 06/13/20 at 11:39; Stop 06/13/20 at 11:40; Status DC Oxytocin (Pitocin) 10 unit STK-MED ONCE .ROUTE ; Start 06/13/20 at 11:39; Stop 06/13/20 at 11:40; Status DC Oxytocin (Pitocin) 10 unit STK-MED ONCE .ROUTE ; Start 06/13/20 at 11:39; Stop 06/13/20 at 11:40; Status DC Sodium Chloride (Normal Saline Flush) 3 ml QSHIFT PRN IV AFTER MEDS AND BLOOD DRAWS; Start 06/13/20 at 12:15 Oxytocin/Sodium Chloride 500 ml @ 125 mls/hr CONT PRN IV EXCESSIVE POST- BLEEDING; Start 06/13/20 at 12:15; Stop 06/13/20 at 20:14; Status DC Ibuprofen (Motrin) 800 mg PRN Q8HRS PRN PO INFLAMMATION Last administered on 06/15/20at 16:30; Start 06/13/20 at 12:15 Ondansetron HCl (Zofran) 4 mg PRN Q6HRS PRN IV NAUSEA/VOMITING; Start 06/13/20 at 12:15 Docusate Sodium (Colace) 100 mg PRN BID PRN PO HARD STOOL Last administered on 06/15/20at 00:20; Start 06/13/20 at 12:15 Al Hydroxide/Mg Hydroxide (Mylanta Plus Xs) 30 ml PRN Q4HRS PRN PO HEARTBURN / GAS; Start 06/13/20 at 12:15 Simethicone (Gas-X) 80 mg PRN AFTMEALHC PRN PO GAS / BLOATING Last administered on 06/14/20at 07:54; Start 06/13/20 at 12:15 Diphenhydramine HCl (Benadryl Oral Elixir) 12.5 mg PRN Q6HRS PRN PO ITCHING Last administered on 06/13/20at 19:48; Start 06/13/20 at 12:15; Stop 06/14/20 at 10:58; Status DC Ferrous Sulfate (Feosol) 325 mg BIDWMEALS PO Last administered on 06/15/20at 08:10; Start 06/13/20 at 17:00 Zolpidem Tartrate (Ambien) 5 mg PRN QHS PRN PO INSOMNIA, MAY REPEAT X1; Start 06/13/20 at 12:15 Oxycodone/ Acetaminophen (Percocet 5/325) 2 tab PRN Q4HRS PRN PO MODERATE PAIN, SEVERE PAIN Last administered on 06/15/20at 16:30; Start 06/13/20 at 12:15 Ketorolac Tromethamine (Toradol 30mg Vial) 30 mg PRN Q6HRS PRN IV PAIN; Start 06/13/20 at 12:15; Stop 06/18/20 at 12:14; Status Cancel Multivitamins (Thera M Plus) 1 tab DAILY PO Last administered on 06/15/20at 08:11; Start 06/14/20 at 09:00 Ephedrine Sulfate (ePHEDrine PF IN SALINE SYRINGE) 50 mg STK-MED ONCE IV ; Start 06/13/20 at 12:26; Stop 06/13/20 at 12:27; Status DC Diphenhydramine HCl (Benadryl) 25 mg PRN Q6HRS PRN PO ITCHING Last administered on 06/14/20at 11:08; Start 06/14/20 at 11:00 Cefazolin Sodium/ Dextrose (Ancef 2gm Premix) 2 gm STK-MED ONCE IV ; Start 06/13/20 at 12:00; Stop 06/15/20 at 16:04; Status DC Active Scripts Active Keflex (Cephalexin) 500 Mg Capsule 1 Cap PO BID Flagyl (Metronidazole) 500 Mg Tablet 1 Tab PO BID Macrobid 100 Mg Capsule (Nitrofurantoin Monohyd/M-Cryst) 100 Mg Capsule 1 Cap PO BID Exam Abd: soft, non tender, fundus firm Prevena in place Assessment POD#2 s/p repeat c/s Plan of Care: Continue current Tx, Mgmt TIERRA COFFMAN Jr, MD Jun 15, 2020 16:46
[2020-06-15 18:40] VITALS: BP 124/70
[2020-06-15 21:20] VITALS: BP 119/71
[2020-06-16] MEDS: DOCUSATE SODIUM 100 MG CAPSULE. PO PRN (01:33)
[2020-06-16] MEDS: IBUPROFEN 400 MG TABLET. PO PRN ×2 (01:35→14:27)
[2020-06-16 05:15] VITALS: BP 124/70
[2020-06-16] MEDS: oxyCODONE/APAP 5/325 1 TAB TABLET PO PRN ×3 (05:20→15:16)
[2020-06-16] MEDS ORDERED: MAGNESIUM HYDROXIDE 2,400 MG/30 ML ORAL.SUSP. PO PRN (08:45)
[2020-06-16] MEDS: FERROUS SULFATE 325 MG TABLET. PO SCH (08:52)
[2020-06-16] MEDS: MULTIVITAMIN with MINERAL TABLET. PO SCH (08:52)
[2020-06-16 10:45] VITALS: BP 119/77
--- NOTE | 2020-06-16 11:19 | PDOC3 ---
OB DISCHARGE SUMMARY DATE OF ADMISSION: 06/13/20 DATE OF DISCHARGE: 06/16/20 REASON FOR ADMISSION: Onset of labor, section INTRAPARTUM PROCEDURES: : Low Cerv Trans DISCHARGE DIAGNOSIS: Term Delivered DISCHARGE INFORMATION: Activity (ad tommy), Diet (regular), Instructions (pelvic rest x 6 wks, no driving x 2 wks, no lifting > 20 lbs. x 6 wks) HOSPITAL COURSE Term gestation delivered repeat section without complications. TIERRA COFFMAN Jr, MD Jun 16, 2020 11:19
[2020-06-16] MEDS ORDERED: IBUP-1027 PO (11:21)
[2020-06-16] MEDS ORDERED: DOCU-153 PO (11:21)
[2020-06-16] MEDS ORDERED: OXYC1TAB15 PO (11:21)
--- NOTE | 2020-06-16 11:23 | DISCH ---
DISCHARGE INSTRUCTIONS Condition on Discharge Condition on Discharge: Stable Activity After Discharge Activity Instructions for Disc: Activity as tolerated Lifting Instructions after Dis: No heavy lifting Driving Instructions after Dis: No driving for 2 weeks Diet after Discharge Diet after Discharge: Regular Contacting the [facility] after DC Call your doctor for: Concerns you may have Follow-Up Follow up with: Dr. Arguelles in 2 wks TIERRA ARGUELLES Jr, MD Jun 16, 2020 11:23
[2020-06-16 18:30] VITALS: BP 143/92
== END 2020-06-16 18:50 | disposition home or self-care (01) | DRG 788 ==
LOC: 3 SO LND 08:15 → OBSVTOIN 08:15 → 3 NORTH 15:30
PROVIDERS: ADMIT Obstetrics & Gynecology; ATTEND Obstetrics & Gynecology
PROC: 10D00Z1 Extraction of Products of Conception, Low, Open Approach (ICD-10-PCS; principal; 2020-06-13)
DX: O34.211 Maternal care for low transverse scar from previous cesarean delivery (principal); O69.81X0 Labor and delivery complicated by cord around neck, without compression, not applicable or unspecified; Z3A.37 37 weeks gestation of pregnancy; Z37.0 Single live birth; Z20.828 Contact with and (suspected) exposure to other viral communicable diseases
CPT/HCPCS: 36415; 80307; 81001; 84112; 85025; 86850; 86900; 86901; 87340; 87426; J0690; J1885; J2274; J2405; J2590; J3010; J7120; G0378; Q0163; U0003-CS

== ENCOUNTER 2020-06-18 16:15 | Emergency (ER) | payer OTHER ==
[~2020-06-18 16:15] MED LIST changes: +DOCU-153 PO; +IBUP-1027 PO; +OXYC1TAB15 PO
== END 2020-06-18 17:02 | disposition left against medical advice (07) ==
LOC: ER 16:15
DX: R10.9 Unspecified abdominal pain (principal); Z53.21 Procedure and treatment not carried out due to patient leaving prior to being seen by health care provider